=== PATIENT | male | born 1980 | race Caucasian/White ===

== ENCOUNTER 2021-11-20 04:42 | Emergency (ER) | payer SELFPAY ==
[~2021-11-20] VITALS: Ht 177.8 cm; Wt 109.0 kg
[2021-11-20] MEDS ORDERED: MORPHINE SULFATE 4 MG/ML CPJ (NOT FOR IM USE) IV STA (06:10)
[2021-11-20] MEDS ORDERED: ONDANSETRON HCL 4MG/2ML INJ IV STA (06:10)
[2021-11-20] MEDS ORDERED: SODIUM CHLORIDE 0.9% 1,000 ML IV ONE (06:15)
[2021-11-20 06:39] LABS: HEMATOCRIT. 42.1 % (42.0-52.0); HEMOGLOBIN. 14.3 g/dL (14.0-18.0); MEAN CORPUSCULAR HEMOGLOBIN 28.3 pg (28.0-32.0); MEAN CORPUSCULAR VOLUME 83.7 fL (80.0-94.0); MEAN PLATELET VOLUME 9.1 fl (7.4-10.4); PLATELET 198 x1000/uL (130-400); RED BLOOD CELL COUNT 5.03 mill/uL (4.7-6.1); RED CELL DISTRIBUTION WIDTH 13.9 % (11.6-14.6)
[2021-11-20 06:40] LABS: CLARITY URINE CLEAR (CLEAR); COLOR URINE YELLOW (YELLOW); KETONES URINE NEGATIVE (NEGATIVE); LEUKOCYTE ESTERASE URINE NEGATIVE (NEGATIVE); NITRITE URINE NEGATIVE (NEGATIVE); OCCULT BLOOD URINE 2+ (NEGATIVE); PH URINE 7.5 (4.5-8.0); PROTEIN URINE NEGATIVE (NEGATIVE); SPECIFIC GRAVITY URINE 1.023 (1.005-1.030)
[2021-11-20 06:55] LABS: CHLORIDE 110 mEq/L (98-107)
[2021-11-20 06:59] LABS: ETHANOL BLOOD < 10 mg/dL
[2021-11-20 07:46] LABS: *AMPHETAMINES SCREEN URINE PRESUMTIVE POSITIVE (NEGATIVE); *BARBITURATES SCREEN URINE NEGATIVE (NEGATIVE); *BENZODIAZEPINES SCREEN URINE NEGATIVE (NEGATIVE); *COCAINE SCREEN URINE NEGATIVE (NEGATIVE); METHADONE URINE SCREEN NEGATIVE (NEGATIVE)
[2021-11-20 07:47] LABS: OPIATES URINE SCREEN NEGATIVE (NEGATIVE); PHENCYCLIDINE URINE SCREEN NEGATIVE (NEGATIVE)
[2021-11-20 08:02] LABS: CANNABINOID URINE SCREEN NEGATIVE (NEGATIVE)
[2021-11-20 08:57] LABS: PLATELET ESTIMATE NORMAL
[2021-11-20] MEDS ORDERED: CEFTRIAXONE 1 G PREMIX 50 ML IV ONE (09:15)
[2021-11-20] MEDS ORDERED: ONDA4TAB11 PO (09:28)
[2021-11-20] MEDS ORDERED: HYDR-4001 MT (09:28)
[2021-11-20] MEDS ORDERED: TAMS-11 MT (09:28)
[2021-11-20] MEDS ORDERED: IBUP-2030 MT (09:28)
[2021-11-20] MEDS ORDERED: CEPH500T MT (09:28)
[2021-11-20 10:07] VITALS: BP 128/87
== END 2021-11-20 10:08 | disposition home or self-care (01) ==
LOC: ER 04:42
DX: N20.0 Calculus of kidney (principal); F15.10 Other stimulant abuse, uncomplicated; Z98.890 Other specified postprocedural states
CPT/HCPCS: 36415; 74176; 80053; 80305; 80320; 81003; 83690; 85025; 96361; 96374; 96375; 99284; J2270; J2405; J7030; G0480